=== PATIENT | female | born 1985 | race Asian ===

== ENCOUNTER 2021-02-28 22:45 | Emergency (ER) | payer OTHER ==
[~2021-02-28] VITALS: Ht 167.6 cm; Wt 79.4 kg
[2021-02-28] MEDS ORDERED: ALBUTEROL SULFATE 2.5 MG/ 0.5 ML NEBU NEB ONE (23:00)
--- NOTE | 2021-02-28 23:01 | NUR ---
PATIENT WAS MSE BY DR FAIR IN ROOM 03A.
[2021-02-28 23:13] LABS: HEMATOCRIT 36.9 % (31.2-41.9); MEAN CORPUSCULAR HEMOGLOBIN 29.7 uug (24.7-32.8); MEAN CORPUSCULAR VOLUME 87.7 fL (75.5-95.3); PLATELET COUNT (AUTO) 296 K/uL (179-408)
[2021-02-28 23:15] LABS: CREATININE 0.8 mg/dL (0.6-1.3); POTASSIUM 3.8 mmol/L (3.5-5.1)
[2021-02-28] MEDS ORDERED: ALBUTEROL SULFATE 2.5 MG/3 ML NEBU ONE (23:16)
[2021-02-28 23:21] LABS: BILIRUBIN,DIRECT 0.1 mg/dL (0.0-0.2); BILIRUBIN,TOTAL 0.2 mg/dL (0.2-1.0); TOTAL PROTEIN, SERUM 7.3 g/dL (6.4-8.2)
[2021-03-01] MEDS ORDERED: ALBU6.7H9 INH (00:42)
[2021-03-01] MEDS ORDERED: OXYC-128 PO (00:42)
--- NOTE | 2021-03-01 01:00 | NUR ---
PATIENT WAS EVALUATED BY DR FAIR. TN TO [facility] HOME.
--- NOTE | 2021-03-01 01:16 | NUR ---
Patient discharged to home in stable condition. Written and verbal after care instructions given. Patient verbalizes understanding of instructions. Stressed follow up or return to ER for worsening s/s.
[2021-03-01 01:18] VITALS: BP 107/70
--- NOTE | 2021-03-01 01:32 | NUR ---
PATIENT WAS TAKEN BY MOTHER. PATIENT NOT IN ANY DISTRESS. NO SOB. NO CP.
== END 2021-03-01 01:33 | disposition home or self-care (01) ==
LOC: ER 22:48
DX: R94.31 Abnormal electrocardiogram [ECG] [EKG] (principal); R06.02 Shortness of breath; T50.905A Adverse effect of unspecified drugs, medicaments and biological substances, initial encounter; Y92.89 Other specified places as the place of occurrence of the external cause; J45.909 Unspecified asthma, uncomplicated; Z86.16 Personal history of COVID-19
CPT/HCPCS: 36415; 70030-TC; 71045; 85025; 93005; A4663